=== PATIENT | male | born 1985 ===

== ENCOUNTER 2018-01-27 08:15 | Emergency (ER) | payer SELFPAY ==
[2018-01-27 08:25] VITALS: BP 136/88; PULSE 95; RESP 18; O2SAT 96
[2018-01-27 09:04] VITALS: TEMP 98.4
== END 2018-01-27 09:03 | disposition left against medical advice (07) ==
LOC: C.ER 08:15
DX: Z02.89 Encounter for other administrative examinations (principal); R23.8 Other skin changes